=== PATIENT | male | born 1995 | race African-American/Black ===

== ENCOUNTER 2022-11-26 21:18 | Emergency (ER) | payer BC, OTHER ==
[~2022-11-26] VITALS: Ht 172.7 cm; Wt 64.5 kg
[2022-11-26 21:42] VITALS: BP 131/99
[2022-11-26] MEDS ORDERED: ONDANSETRON 4MG ODT PO STA (22:22)
[2022-11-26 22:41] LABS: BASOPHILS % 0.1 % (0.0-2.0); EOSINOPHILS % 0.1 % (0.0-5.0); HEMATOCRIT. 38.9 % (42.0-52.0); HEMOGLOBIN. 12.7 g/dL (14.0-18.0); LYMPHOCYTES % 42.4 % (20.0-50.0); MEAN CORPUSCULAR VOLUME 88.7 fL (80.0-94.0); MEAN PLATELET VOLUME 7.2 fl (7.4-10.4); MONOCYTES % 8.7 % (2.0-8.0); NEUTROPHILS % 48.7 % (40.0-76.0); PLATELET 400 x1000/uL (130-400); RED BLOOD CELL COUNT 4.38 mill/uL (4.7-6.1); RED CELL DISTRIBUTION WIDTH 13.5 % (11.6-14.6)
[2022-11-26 22:46] LABS: CHLORIDE 102 mEq/L (98-107)
[2022-11-26] MEDS ORDERED: SODIUM CHLORIDE 0.9% 1,000 ML IV ONE (23:30)
[2022-11-27 01:36] LABS: CHLORIDE 107 mEq/L (98-107)
[2022-11-27] MEDS ORDERED: ONDA4TAB11 PO (02:04)
[2022-11-27] MEDS ORDERED: ACETAMINOPHEN 325MG TABLET PO ONE (02:15)
== END 2022-11-27 02:15 | disposition home or self-care (01) ==
LOC: ER 21:18
DX: R10.84 Generalized abdominal pain (principal); R11.2 Nausea with vomiting, unspecified; R19.7 Diarrhea, unspecified
CPT/HCPCS: 36415; 74176; 80048; 80053; 83690; 85025; 96360; 99284; J7030; Q0162; Z7610

== ENCOUNTER 2022-12-26 14:28 | Emergency (ER) | payer OTHER ==
[~2022-12-26] VITALS: Ht 172.7 cm; Wt 70.8 kg
[~2022-12-26 14:28] MED LIST: ONDA4TAB11 PO
[2022-12-26 14:51] VITALS: TEMP 98.6; O2SAT 99
[2022-12-26] MEDS ORDERED: DEXAMETHASONE 10 MG/ML VIAL IM ONE (15:15)
[2022-12-26] MEDS ORDERED: SODIUM CHLORIDE 0.9% 1,000 ML IV ONE (15:15)
[2022-12-26] MEDS ORDERED: KETOROLAC 15MG/ML VIAL IV ONE (15:15)
[2022-12-26 15:43] LABS: BASOPHILS % 0.7 % (0.0-2.0); CHLORIDE 99 mEq/L (98-107); EOSINOPHILS % 0.3 % (0.0-5.0); HEMATOCRIT. 31.9 % (42.0-52.0); HEMOGLOBIN. 11.1 g/dL (14.0-18.0); LYMPHOCYTES % 40.8 % (20.0-50.0); MEAN CORPUSCULAR VOLUME 86.4 fL (80.0-94.0); MEAN PLATELET VOLUME 7.8 fl (7.4-10.4); MONOCYTES % 8.2 % (2.0-8.0); PLATELET 507 x1000/uL (130-400); RED CELL DISTRIBUTION WIDTH 13.6 % (11.6-14.6)
[2022-12-26] MEDS ORDERED: IOHEXOL-300 100 ML BOTTLE ONE (16:37)
[2022-12-26] MEDS ORDERED: AMOXICILLIN/POTASSIUM CLAVULANATE 875/125MG TAB PO ONE (18:00)
[2022-12-26] MEDS ORDERED: CLINDAMYCIN HCL 150MG CAPSULE PO ONE (18:00)
[2022-12-26] MEDS ORDERED: NAPR-1074 MT ×2 (18:04→18:06)
[2022-12-26] MEDS ORDERED: MED4 MT ×2 (18:04→18:06)
[2022-12-26] MEDS ORDERED: CLIN-194 MT ×2 (18:04→18:06)
[2022-12-26 18:38] VITALS: BP 143/99; PULSE 66; RESP 12
== END 2022-12-26 18:39 | disposition home or self-care (01) ==
LOC: ER 14:28
DX: J03.90 Acute tonsillitis, unspecified (principal); M54.2 Cervicalgia; Z12.12 Encounter for screening for malignant neoplasm of rectum
CPT/HCPCS: 99285; 96374; 70487; 96361; 80048; 87430; 85025; 87070; 36415; 96372; Q9967; J1100; J1885; J7030

== ENCOUNTER 2023-01-17 16:25 | Emergency (ER) | payer OTHER ==
[~2023-01-17] VITALS: Ht 172.7 cm; Wt 65.0 kg
[~2023-01-17 16:25] MED LIST changes: +CLIN-194 MT; +MED4 MT; +NAPR-1074 MT
[2023-01-17 16:37] VITALS: O2SAT 98
[2023-01-17 19:40] LABS: BASOPHILS % 0.3 % (0.0-2.0); EOSINOPHILS % 0.3 % (0.0-5.0); HEMATOCRIT. 33.8 % (42.0-52.0); HEMOGLOBIN. 11.3 g/dL (14.0-18.0); LYMPHOCYTES % 40.4 % (20.0-50.0); MEAN CORPUSCULAR VOLUME 86.5 fL (80.0-94.0); MEAN PLATELET VOLUME 7.3 fl (7.4-10.4); MONOCYTES % 8.7 % (2.0-8.0); NEUTROPHILS % 50.3 % (40.0-76.0); PLATELET 357 x1000/uL (130-400); RED BLOOD CELL COUNT 3.91 mill/uL (4.7-6.1); RED CELL DISTRIBUTION WIDTH 13.9 % (11.6-14.6)
[2023-01-17 19:46] LABS: CHLORIDE 103 mEq/L (98-107)
[2023-01-17] MEDS ORDERED: KETOROLAC 60MG/2ML VIAL IM ONE (22:15)
[2023-01-17 22:33] LABS: MONOTEST NEGATIVE (NEGATIVE)
[2023-01-17 22:34] VITALS: BP 124/85
[2023-01-17 22:35] VITALS: PULSE 90; RESP 19; TEMP 98.7
== END 2023-01-17 22:30 | disposition home or self-care (01) ==
LOC: ER 16:25
DX: R59.1 Generalized enlarged lymph nodes (principal)
CPT/HCPCS: 80053; 85025; 86308; 36415; 70491; 96372; 99285; J1885; Z7610 ×2